=== PATIENT | male | born 1960 | race Caucasian/White ===

== ENCOUNTER 2023-02-10 19:39 | Inpatient (IN) | payer BC, OTHER ==
[~2023-02-10] VITALS: Ht 170.2 cm; Wt 66.7 kg
[2023-02-10 20:03] LABS: BASOPHILS % 0.3 % (0.0-1.0); EOSINOPHILS % 0.3 % (0.0-6.0); HEMATOCRIT 37.6 % (38.2-49.6); HEMOGLOBIN 12.6 g/dL (14.0-18.0); LYMPHOCYTES # (AUTO) 0.7 (1.0-3.2); LYMPHOCYTES % 5.6 % (18.0-39.1); MEAN CORPUSCULAR HEMOGLOBIN 29.6 pg (28-32); MEAN CORPUSCULAR HGB CONC 33.5 g/dL (31-35); MEAN CORPUSCULAR VOLUME 88.3 fL (81-99); MONOCYTES # (AUTO) 1.4 (0.2-0.8); MONOCYTES % 10.7 % (4.4-11.3); NEUTROPHILS # (AUTO) 10.8 (2.1-6.9); NEUTROPHILS % 82.5 % (38.7-80.0); PLATELET COUNT 229 x10e3/uL (140-360); RED BLOOD COUNT 4.26 x10e6/uL (4.3-5.7); RED CELL DISTRIBUTION WIDTH 12.4 % (11.7-14.4); WHITE BLOOD COUNT 13.11 x10e3/uL (4.8-10.8)
[2023-02-10 20:06] LABS: CLARITY,URINE CLEAR (CLEAR); COLOR,URINE YELLOW (YELLOW); KETONES,URINE NEGATIVE (NEGATIVE); LEUKOCYTE ESTERASE ,URINE NEGATIVE (NEGATIVE); NITRITE,URINE NEGATIVE (NEGATIVE); PROTEIN,URINE DIPSTICK NEGATIVE (NEGATIVE); URINE UROBILINOGEN 0.2 mg/dL (0.2 - 1)
[2023-02-10 20:18] LABS: BACTERIA,URINE FEW /HPF; WBC,URINE (MAN) 0-5 /HPF (0-5)
[2023-02-10 20:21] LABS: ALBUMIN 3.8 g/dL (3.5-5.0); ALBUMIN/GLOBULIN RATIO 1.2 (0.8-2.0); ANION GAP 17.7 mmol/L (8-16); CALCIUM 9.7 mg/dL (8.4-10.2); CREATININE, SERUM 4.81 mg/dL (0.72-1.25); POTASSIUM 4.7 mmol/L (3.5-5.1)
[2023-02-10 20:30] VITALS: PULSE 81; RESP 20; O2SAT 98
[2023-02-10] MEDS ORDERED: LIDOCAINE JELLY 2% 10ML URO-JET TOP ONE (20:30)
[2023-02-10] MEDS: SODIUM CHLORIDE 0.9% 1000ML 1,000 ML IV SCH (20:39)
[2023-02-10] MEDS ORDERED: DEXTROSE 50% SYRINGE 50 ML IV PRN (21:30)
[2023-02-10] MEDS ORDERED: ONDANSETRON HCL INJ 2MG/ML 2ML 2 MG/ML VIAL IV PRN (21:30)
[2023-02-10] MEDS: SODIUM CHLORIDE 1 GM TAB PO SCH (22:16)
[2023-02-10] MEDS ORDERED: PIOGLITAZONE HC45 MG (22:36)
[2023-02-10] MEDS ORDERED: TAMSULOSIN (22:36)
[2023-02-10] MEDS ORDERED: FENOFIBRATE134 MG (22:36)
[2023-02-10] MEDS ORDERED: LISINOPRIL2.5 MG (22:36)
[2023-02-10] MEDS ORDERED: SIMVASTATIN40 MG (22:36)
[2023-02-10] MEDS ORDERED: METFORMIN HCL1000 MG (22:36)
[2023-02-10] MEDS: Morphine 2mg Syringe 2 MG/ML SYR IV PRN (22:40)
[2023-02-10 22:45] VITALS: BP 143/69; PULSE 89; RESP 18; TEMP 98.3; O2SAT 99
[2023-02-10 22:58] VITALS: BP 143/69; PULSE 85; RESP 19; TEMP 98.3; O2SAT 99
[2023-02-11] VITALS (24 sets, daily range): BP systolic 113–142; BP diastolic 60–73; PULSE 72–104; RESP 11–21; TEMP 98–98.8; O2SAT 93–100
[2023-02-11 05:32] LABS: BASOPHILS % 0.1 % (0.0-1.0); HEMATOCRIT 37.1 % (38.2-49.6); HEMOGLOBIN 12.5 g/dL (14.0-18.0); LYMPHOCYTES # (AUTO) 0.6 (1.0-3.2); LYMPHOCYTES % 7.2 % (18.0-39.1); MEAN CORPUSCULAR HEMOGLOBIN 29.6 pg (28-32); MEAN CORPUSCULAR HGB CONC 33.7 g/dL (31-35); MEAN CORPUSCULAR VOLUME 87.9 fL (81-99); MONOCYTES % 11.4 % (4.4-11.3); NEUTROPHILS # (AUTO) 7.2 (2.1-6.9); PLATELET COUNT 245 x10e3/uL (140-360); RED BLOOD COUNT 4.22 x10e6/uL (4.3-5.7); RED CELL DISTRIBUTION WIDTH 12.4 % (11.7-14.4); WHITE BLOOD COUNT 8.89 x10e3/uL (4.8-10.8)
[2023-02-11 06:00] LABS: ALBUMIN 3.3 g/dL (3.5-5.0); ALBUMIN/GLOBULIN RATIO 1.1 (0.8-2.0); ANION GAP 16.6 mmol/L (8-16); CALCIUM 9.3 mg/dL (8.4-10.2); CREATININE, SERUM 2.9 mg/dL (0.72-1.25); POTASSIUM 4.6 mmol/L (3.5-5.1)
[2023-02-11] MEDS: SODIUM CHLORIDE 0.9% 1000ML 1,000 ML IV SCH ×2 (06:16→16:42)
[2023-02-11] MEDS: INSULIN REGULAR, HUMAN 100 UNIT/1 ML SQ SCH ×4 (06:32→21:00)
[2023-02-11] MEDS: SODIUM CHLORIDE 1 GM TAB PO SCH ×2 (08:20→16:41)
[2023-02-11 15:28] LABS: HEMOGLOBIN 11.3 g/dL (14.0-18.0)
[2023-02-11] MEDS: Morphine 2mg Syringe 2 MG/ML SYR IV PRN (22:56)
[2023-02-12] VITALS (7 sets, daily range): BP systolic 124–140; BP diastolic 62–72; PULSE 63–76; RESP 16–20; TEMP 98.2–98.8; O2SAT 94–99
[2023-02-12 01:16] LABS: HEMATOCRIT 34.8 % (38.2-49.6); HEMOGLOBIN 11.4 g/dL (14.0-18.0)
[2023-02-12] MEDS: SODIUM CHLORIDE 0.9% 1000ML 1,000 ML IV SCH (02:30)
[2023-02-12 07:16] LABS: ALBUMIN/GLOBULIN RATIO 1.1 (0.8-2.0); ANION GAP 13.7 mmol/L (8-16); CALCIUM 8.8 mg/dL (8.4-10.2); CREATININE, SERUM 0.84 mg/dL (0.72-1.25); POTASSIUM 3.7 mmol/L (3.5-5.1)
[2023-02-12] MEDS: INSULIN REGULAR, HUMAN 100 UNIT/1 ML SQ SCH ×4 (07:30→21:53)
[2023-02-12] MEDS: SODIUM CHLORIDE 1 GM TAB PO SCH (09:08)
[2023-02-12] MEDS ORDERED: DEXTROSE 5% 1,000 ML IV ONE (10:30)
[2023-02-12 10:47] LABS: ANION GAP 13.2 mmol/L (8-16); CREATININE, SERUM 0.87 mg/dL (0.72-1.25); POTASSIUM 4.2 mmol/L (3.5-5.1)
[2023-02-12] MEDS ORDERED: DESMOPRESSIN ACETATE 4 MCG/ML VIAL SQ ONE (11:00)
[2023-02-12 13:21] LABS: CREATININE, SERUM 0.84 mg/dL (0.72-1.25)
[2023-02-12 17:01] LABS: ANION GAP 12.8 mmol/L (8-16); CALCIUM 8.9 mg/dL (8.4-10.2); CREATININE, SERUM 0.83 mg/dL (0.72-1.25); POTASSIUM 3.8 mmol/L (3.5-5.1)
[2023-02-13] VITALS (7 sets, daily range): BP systolic 121–143; BP diastolic 66–85; PULSE 63–75; RESP 16–20; TEMP 98–98.7; O2SAT 96–100
[2023-02-13 05:27] LABS: BASOPHILS # (AUTO) 0.1 (0.0-0.1); BASOPHILS % 0.8 % (0.0-1.0); EOSINOPHILS # (AUTO) 0.4 (0.0-0.4); EOSINOPHILS % 5.2 % (0.0-6.0); HEMATOCRIT 32.9 % (38.2-49.6); HEMOGLOBIN 10.9 g/dL (14.0-18.0); LYMPHOCYTES # (AUTO) 1.4 (1.0-3.2); LYMPHOCYTES % 19.2 % (18.0-39.1); MEAN CORPUSCULAR HEMOGLOBIN 29.9 pg (28-32); MEAN CORPUSCULAR HGB CONC 33.1 g/dL (31-35); MEAN CORPUSCULAR VOLUME 90.1 fL (81-99); MONOCYTES # (AUTO) 0.8 (0.2-0.8); MONOCYTES % 11.3 % (4.4-11.3); NEUTROPHILS # (AUTO) 4.6 (2.1-6.9); NEUTROPHILS % 63.1 % (38.7-80.0); PLATELET COUNT 223 x10e3/uL (140-360); RED BLOOD COUNT 3.65 x10e6/uL (4.3-5.7); RED CELL DISTRIBUTION WIDTH 12.4 % (11.7-14.4); WHITE BLOOD COUNT 7.33 x10e3/uL (4.8-10.8)
[2023-02-13 05:56] LABS: ANION GAP 11.6 mmol/L (8-16); CALCIUM 8.7 mg/dL (8.4-10.2); CREATININE, SERUM 0.75 mg/dL (0.72-1.25); POTASSIUM 3.6 mmol/L (3.5-5.1)
[2023-02-13] MEDS: Morphine 2mg Syringe 2 MG/ML SYR IV PRN (06:08)
[2023-02-13] MEDS ORDERED: FINASTERIDE 5 MG TAB PO SCH (09:00)
[2023-02-13] MEDS ORDERED: ONDANSETRON HCL 4 MG ORAL DISINTEGRATING TAB PO PRN (11:45)
[2023-02-13] MEDS ORDERED: FLOMAX0.4 MG PO (15:15)
[2023-02-13] MEDS ORDERED: FINASTERIDE5 MG PO (15:15)
[2023-02-13] MEDS ORDERED: TAMSULOSIN HCL 0.4 MG CAP PO SCH (21:00)
== END 2023-02-13 17:07 | disposition home or self-care (01) | DRG 699 ==
LOC: ER 19:42 → ERHOLD 21:49 → ICU 22:45 → MED/SURG2 02-11 20:54
PROVIDERS: ADMIT Internal Medicine; ATTEND Internal Medicine
DX: N13.9 Obstructive and reflux uropathy, unspecified (principal); E87.1 Hypo-osmolality and hyponatremia; N17.9 Acute kidney failure, unspecified; N13.30 Unspecified hydronephrosis; N40.1 Benign prostatic hyperplasia with lower urinary tract symptoms; R55 Syncope and collapse; E78.5 Hyperlipidemia, unspecified; E11.9 Type 2 diabetes mellitus without complications; S00.83XA Contusion of other part of head, initial encounter; W01.198A Fall on same level from slipping, tripping and stumbling with subsequent striking against other object, initial encounter; Y92.89 Other specified places as the place of occurrence of the external cause; R33.8 Other retention of urine; R31.0 Gross hematuria; D72.829 Elevated white blood cell count, unspecified; D64.9 Anemia, unspecified; K80.20 Calculus of gallbladder without cholecystitis without obstruction; R39.14 Feeling of incomplete bladder emptying; K57.90 Diverticulosis of intestine, part unspecified, without perforation or abscess without bleeding; Z20.822 Contact with and (suspected) exposure to COVID-19; Z87.891 Personal history of nicotine dependence
CPT/HCPCS: 36415; 51700; 70450; 71045; 72125; 74176; 76770; 80048; 80053; 81001; 82948; 83690; 84484; 85014; 85018; 85025; 93005; 94799; 99284; J2270; J2405; J7030; J7070; U0002